=== PATIENT | male | born 1970 | race Two or more races ===

== ENCOUNTER 2019-03-10 21:58 | Emergency (ER) | payer OTHER ==
[~2019-03-10] VITALS: Ht 175.3 cm; Wt 86.2 kg
--- NOTE | 2019-03-10 21:59 | NUR ---
ED Nurse Note: Patient was [facility]IB[facility] from [facility] due to seizure. VSS, NAD, complaining of right shoulder pain. Seizure pads applied on bed, on equipment monitor phototypesetting. Will continue to monitor patient.
--- NOTE | 2019-03-10 22:05 | NUR ---
ED Nurse Note: ERMD at bedside.
[2019-03-10] MEDS ORDERED: levETIRAcetam 1,000mg/NS100ml 100 ML IVPB ONE (22:15)
[2019-03-10 22:25] VITALS: BP 123/80
--- NOTE | 2019-03-10 22:30 | NUR ---
ED Nurse Note: IV line established on left AC with 20 g. Blood drawn and sent to lab with urine. Line patent and intact.
--- NOTE | 2019-03-10 22:40 | NUR ---
ED Nurse Note: Patient went for CT accompanied by radiology transporter via wheelchair.
--- NOTE | 2019-03-10 22:49 | NUR ---
ED Nurse Note: Pt back from CT accompanied by radiology therapist via wheelchair. VSS, NAD, on monitor.
--- NOTE | 2019-03-10 22:52 | NUR ---
ED Nurse Note: XR at bedside accompanied by radiotelegraph operator.
[2019-03-10 22:53] LABS: BASOPHILS % (AUTO) 1.8 % (0.0-2.0); EOSINOPHILS % (AUTO) 1.4 % (0.0-3.0); HEMATOCRIT 41.7 % (42.0-52.0); HEMOGLOBIN 15.7 G/DL (14.2-18.0); LYMPHOCYTES % (AUTO) 27.8 % (20.0-45.0); MEAN CORPUSCULAR VOLUME 85 FL (80-99); MONOCYTES % (AUTO) 8.1 % (1.0-10.0); NEUTROPHILS % (AUTO) 60.9 % (45.0-75.0); PLATELET COUNT 279 K/UL (150-450); RED BLOOD COUNT 4.93 M/UL (4.70-6.10); RED CELL DISTRIBUTION WIDTH 9.8 % (11.6-14.8)
[2019-03-10 22:53] LABS: APPEARANCE,URINE CLEAR; BILIRUBIN, URINE NEGATIVE (NEGATIVE); COLOR,URINE PALE YELLOW; GLUCOSE, URINE (UA) NEGATIVE (NEGATIVE); KETONES,URINE 1+ (NEGATIVE); LEUKOCYTE ESTERASE ,URINE NEGATIVE (NEGATIVE); NITRITE,URINE NEGATIVE (NEGATIVE); PH,URINE 5 (4.5-8.0); PROTEIN,URINE 2+ (NEGATIVE); UROBILINOGEN,URINE NORMAL MG/DL (0.0-1.0)
[2019-03-10 23:04] LABS: ANION GAP 8 mmol/L (5-15); BLOOD UREA NITROGEN 16 mg/dL (7-18); CARBON DIOXIDE 27 MMOL/L (21-32); CHLORIDE 104 MMOL/L (98-107); POTASSIUM 3.7 MMOL/L (3.5-5.1); SODIUM 139 MMOL/L (136-145)
[2019-03-10 23:15] LABS: ALANINE AMINOTRANSFERASE 35 U/L (12-78); ALBUMIN 4.1 G/DL (3.4-5.0); ALBUMIN/GLOBULIN RATIO 1.3 (1.0-2.7); ALKALINE PHOSPHATASE 76 U/L (46-116); ASPARTATE AMINO TRANSFERASE 16 U/L (15-37); BILIRUBIN,TOTAL 1.1 MG/DL (0.2-1.0)
[2019-03-10 23:18] LABS: BILIRUBIN,DIRECT 0.2 MG/DL (0.0-0.3)
--- NOTE | 2019-03-10 23:42 | Diagnostic Imaging Report ---
Indication: Shoulder pain status post injury Technique: XRAY Shoulder Compl R Comparison: None Findings: Bone mineralization within normal limits. No acute fracture identified. Glenohumeral and acromioclavicular joints are maintained, without evidence of dislocation. Small ossific focus is noted adjacent to the humeral head which may suggest calcific tendinitis or marrow present sequela of remote injury. Imaged portions of the right lung are clear. Impression: * No evidence of acute fracture or dislocation. * Findings suggesting calcific tendinopathy.
--- NOTE | 2019-03-10 23:42 | Diagnostic Imaging Report ---
Indication: Seizure Technique: Continuous helical CT scanning of the head was performed utilizing automated exposure control without intravenous contrast material. Axial and coronal reconstructions were obtained. Comparison: None CT dose: Total DLP 1424.1 mGycm; CTDI vol 60 mGy Findings: There is a left-sided craniotomy and encephalomalacia in the left temporal lobe. Correlation with surgical history recommended. There is no acute intracranial hemorrhage, mass effect or cortical edema. There is mild ex vacuo dilatation of the temporal horn of the left lateral ventricle related to the above-described encephalomalacia. Otherwise ventricles are normal in size and configuration. There is no effacement of the basilar cisterns. Mastoid air cells and paranasal sinuses are clear. IMPRESSION: Left-sided craniotomy and encephalomalacia in the left temporal lobe which is likely postsurgical in etiology. Correlation with history is recommended. No evidence of acute intracranial hemorrhage, mass effect or cortical edema. MRI may be obtained for more sensitive evaluation as clinically indicated. The CT scanner at [facility] is accredited by the [employer] and the scans are performed using protocols designed to limit radiation exposure to as low as reasonably achievable to attain images of sufficient resolution adequate for diagnostic evaluation.
[2019-03-10 23:43] VITALS: BP 116/76
[2019-03-11 00:25] VITALS: BP 116/76
[2019-03-11] MEDS ORDERED: KEPPRA500 M4 ORAL (00:33)
--- NOTE | 2019-03-11 00:33 | Emergency Room Report ---
History of Present Illness General Chief Complaint: Seizure Source: Patient Present Illness HPI 48-year-old male history of epilepsy takes Keppra 500mg at night used to take 500 mg twice a day, presents with seizure prior to arrival, patient had a tonic- clonic movement, patient states he did get a chance to take his nighttime seizure medication, he denies any chest pain shortness of breath he is back to baseline denies any urinary incontinence, seizures are aggravated by not taking Keppra, alleviated by taking Keppra severity is moderate, intermittent unknown duration of time today patient presents for evaluation via EMS patient is at baseline Allergies: Coded Allergies: No Known Allergies (Unverified , 03/10/19) Patient History Past Medical History: see triage record Reviewed Nursing Documentation: PMH: Agreed; PSxH: Agreed Nursing Documentation-PMH Hx Seizures: Yes Review of Systems All Other Systems: negative except mentioned in HPI Physical Exam Vital Signs Date Time Temp Pulse Resp B/P (MAP) Pulse Ox O2 Delivery O2 Flow Rate FiO2 03/10/19 21:49 98.2 93 18 145/80 (101) 99 Room Air 03/10/19 22:43 98 Sp02 EP Interpretation: reviewed, normal General Appearance: well appearing, no apparent distress, alert Head: normocephalic, atraumatic Eyes: bilateral eye PERRL, bilateral eye EOMI ENT: uvula midline, moist mucus membranes Neck: supple, thyroid normal, supple/symm/no masses Respiratory: lungs clear, no respiratory distress, no retraction, no accessory muscle use Cardiovascular #1: normal peripheral pulses, regular rate, rhythm, no edema, no gallop, no murmur Gastrointestinal: non tender, soft, no guarding, no rebound Musculoskeletal: normal inspection Neurologic: alert, oriented x3 Psychiatric: mood/affect normal Skin: no rash, warm/dry Medical Decision Making Diagnostic Impression: Primary Impression: Epileptic seizure, generalized ER Course 48-year-old male presents with epilepsy, patient at baseline, patient Keppra loaded, counseled patient he cannot drive until cleared by neurology, CT brain negative, labs unremarkable Patient observed, disposition home with return precautions We will change Keppra to 500 mg twice a day Laboratory Tests Test 03/10/19 22:25 03/10/19 22:30 White Blood Count 7.0 K/UL (4.8-10.8) Red Blood Count 4.93 M/UL (4.70-6.10) Hemoglobin 15.7 G/DL (14.2-18.0) Hematocrit 41.7 % (42.0-52.0) L Mean Corpuscular Volume 85 FL (80-99) Mean Corpuscular Hemoglobin 31.8 PG (27.0-31.0) H Mean Corpuscular Hemoglobin Concent 37.6 G/DL (32.0-36.0) H Red Cell Distribution Width 9.8 % (11.6-14.8) L Platelet Count 279 K/UL (150-450) Mean Platelet Volume 7.8 FL (6.5-10.1) Neutrophils (%) (Auto) 60.9 % (45.0-75.0) Lymphocytes (%) (Auto) 27.8 % (20.0-45.0) Monocytes (%) (Auto) 8.1 % (1.0-10.0) Eosinophils (%) (Auto) 1.4 % (0.0-3.0) Basophils (%) (Auto) 1.8 % (0.0-2.0) Sodium Level 139 MMOL/L (136-145) Potassium Level 3.7 MMOL/L (3.5-5.1) Chloride Level 104 MMOL/L (98-107) Carbon Dioxide Level 27 MMOL/L (21-32) Anion Gap 8 mmol/L (5-15) Blood Urea Nitrogen 16 mg/dL (7-18) Creatinine 1.0 MG/DL (0.55-1.30) Estimate Glomerular Filtration Rate > 60 mL/min (>60) Glucose Level 96 MG/DL (74-106) Calcium Level 9.0 MG/DL (8.5-10.1) Total Bilirubin 1.1 MG/DL (0.2-1.0) H Direct Bilirubin 0.2 MG/DL (0.0-0.3) Aspartate Amino Transferase (AST) 16 U/L (15-37) Alanine Aminotransferase (ALT) 35 U/L (12-78) Alkaline Phosphatase 76 U/L (46-116) Total Protein 7.3 G/DL (6.4-8.2) Albumin 4.1 G/DL (3.4-5.0) Globulin 3.2 g/dL Albumin/Globulin Ratio 1.3 (1.0-2.7) Urine Color Pale yellow Urine Appearance Clear Urine pH 5 (4.5-8.0) Urine Specific [place] 1.025 (1.005-1.035) Urine Protein 2+ (NEGATIVE) H Urine Glucose (UA) Negative (NEGATIVE) Urine Ketones 1+ (NEGATIVE) H Urine Blood 1+ (NEGATIVE) H Urine Nitrite Negative (NEGATIVE) Urine Bilirubin Negative (NEGATIVE) Urine Urobilinogen Normal MG/DL (0.0-1.0) Urine Leukocyte Esterase Negative (NEGATIVE) Urine RBC 5-10 /HPF (0 - 0) H Urine WBC 0-2 /HPF (0 - 0) Urine Squamous Epithelial Cells None /LPF (NONE/OCC) Urine Bacteria Few /HPF (NONE) Urine Sperm Moderate /LPF (NONE) Other X-Ray Diagnostic Results Other X-Ray Diagnostic Results : X-Ray ordered: Right shoulder # of Views/Limited Vs Complete: 3 View Indication: Pain EP Interpretation: Yes Interpretation: no dislocation, no fractures Impression: No acute disease Electronically Signed by: Lico Lucio MD CT/MRI/US Diagnostic Results CT/MRI/US Diagnostic Results : Impression Patient : MARIA ELENA MONTERO Referring Physician: Lico Lucio MD ID Number: [id number] Service Date: 03/10/19 : 1970 Report Date: 03/10/19 Gender: M Accession No.: [id number] Location: [facility] Procedure: CT Head no Contrast CT HEAD Without Contrast: No acute intracranial process. Encephalomalacia in the left temporal lobe. Surgical changes left calvarium. Dictated By: Mary Edgar MD Electronically Signed By: Signed Date/Time CC: Last Vital Signs Date Time Temp Pulse Resp B/P (MAP) Pulse Ox O2 Delivery O2 Flow Rate FiO2 03/10/19 23:43 98.2 71 18 116/76 99 Room Air 03/10/19 22:43 98 Disposition: HOME, SELF-CARE Condition: Stable Scripts Levetiracetam (KEPPRA) 500 Mg Tablet 500 MG ORAL EVERY 12 HOURS, #60 TAB 0 Refills Prov: Lico Lucio MD 03/11/19 Referrals: KATIE MCKEON (PCP) [facility] Patient Instructions: Seizure, Adult Additional Instructions: The patient was provided with discharge instructions, notified to follow-up with a primary care doctor and or specialist in the next 24-48 hours, and to return to the ED if they have worsening of their symptoms. Please note that this report is being documented using [employer] technology. This can lead to erroneous entry secondary to incorrect interpretation by the dictating instrument. NO DRIVING UNTIL CLEARED BY NEUROLOGIST Lico Lucio MD Mar 11, 2019 00:33
--- NOTE | 2019-03-11 00:40 | NUR ---
ED Nurse Note: Faxed over document for reporting seizure activity to [employer]. Patient notified and verbalized understanding of the process.
[2019-03-11 00:45] VITALS: BP 116/76
--- NOTE | 2019-03-11 00:45 | NUR ---
ER DISCHARGE NOTE: Patient is cleared to be discharged per ERMD, pt is aox4, on room air, with stable vital signs. pt was given dc and prescription instructions, pt was able to verbalize understanding, pt id band and iv site removed without complications. pt is able to ambulate with steady gait. pt took all belongings.
== END 2019-03-11 00:45 | disposition home or self-care (01) ==
LOC: EDBD 21:58 → EMR 22:12
DX: G40.909 Epilepsy, unspecified, not intractable, without status epilepticus (principal)
CPT/HCPCS: 36415; 70450; 73030; 80053; 81003; 82248; 82962; 85025; J1953; Z7502; 99284